=== PATIENT | male | born 1980 | race American Indian/Alaskan Native ===

== ENCOUNTER 2016-08-23 09:04 | Emergency (ER) | payer OTHER ==
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
[2016-08-23 10:25] VITALS: BP 118/84
== END 2016-08-23 10:24 | disposition home or self-care (01) ==
LOC: ED 09:04
DX: M79.1 Myalgia (principal); J45.909 Unspecified asthma, uncomplicated; F17.200 Nicotine dependence, unspecified, uncomplicated; V49.9XXA Car occupant (driver) (passenger) injured in unspecified traffic accident, initial encounter; Y93.89 Activity, other specified; Y99.9 Unspecified external cause status; Y92.410 Unspecified street and highway as the place of occurrence of the external cause
CPT/HCPCS: 99282